=== PATIENT | female | born 2005 | race Caucasian/White ===

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

== ENCOUNTER 2023-05-10 15:29 | Outpatient (REF) | payer OTHER, SELFPAY ==
--- NOTE | ~2023-05-10 | US_ITS ---
EXAMINATION: US DIAGNOSTIC ULTRASOUND BREAST, RIGHT CLINICAL INFORMATION: 6 month Follow-up right breast fibroadenoma, 17 year female (first 6 month follow-up). COMPARISON: 11/03/2022 TECHNIQUE: Ultrasound of the right breast is performed with real-time stinson scale imaging and color Doppler. FINDINGS: There is redemonstration of a hypoechoic circumscribed mildly lobulated mass in the 8:00 axis of the right breast, 4 cm from the nipple, measuring a stable 2.1 x 1.2 x 1.8 cm. This is most consistent with a fibroadenoma which is stable. No additional abnormalities. Results were provided to the patient at time of visit by the technologist. US/US breast RT limited mamm only IMPRESSION: No significant interval change in right breast fibroadenoma measuring up to 2.1 cm. Recommend six-month interval follow-up targeted right breast ultrasound to ensure stability. ASSESSMENT: BI-RADS 3: Probably Benign RECOMMENDATION: Diagnostic ultrasonography in 6 months.
== END 2023-05-10 15:30 | disposition home or self-care (01) ==
LOC: HO.MAMMO 15:29
PROVIDERS: Visit Provider Advanced Practice Midwife
DX: R92.2 Inconclusive mammogram (principal)
CPT/HCPCS: 76642

== ENCOUNTER → 2023-05-10 15:30 | Outpatient (BNV) | payer OTHER, SELFPAY | PROVIDERS: Visit Provider Radiology Diagnostic Radiology | DX: N60.21 Fibroadenosis of right breast (principal) | CPT/HCPCS: 76642 ==

== ENCOUNTER 2024-11-25 12:43 | Emergency (ER) | payer OTHER, SELFPAY ==
[2024-11-25 12:45] VITALS: BP 128/75; PULSE 70; RESP 16; TEMP 36.6; O2SAT 100; BMI 17.7
--- NOTE | 2024-11-25 12:57 | ED_ITS ---
HPI - Female Genitourinary General Chief complaint: Urogenital-Female Stated complaint: stomach pain Time Seen by Provider: 11/25/24 13:39 Source: patient and family (mother) Mode of arrival: ambulatory Limitations: no limitations History of Present Illness ED Provider: [facility] Narrative: Patient is presenting with concern for UTI, she had urine tested with a dip kit at a pharmacy tested positive she also also reported episodes of nausea vomiting and diarrhea, states she is on her. She is not . No vaginal bleeding or discharge. No prior abdominal surgeries Related Data Previous Rx's ?Medication ?Instructions ?Recorded nitrofurantoin 100 mg PO BID #7 caps monohydrate/macrocrystals 100 mg capsule (Macrobid) Allergies Allergy/AdvReac Type Severity Reaction Status Date / Time acetaminophen (From TYLENOL) Allergy Intermediate RASH Verified 11/25/24 12:48 amoxicillin (AMOXICILLIN) Allergy Intermediate HIVES Verified 11/25/24 12:48 Review of Systems 2 Constitutional: Constitutional: Reports as per [facility] Past Medical History Medical History (Updated 11/25/24 @ 14:45 by Trevin Lagunas DO) Breast mass, right Lump in female breast No known health problems Social History Social History Alcohol intake: never Patient Tobacco Use Status: Never used Tobacco Substance Use Type: Marijuana Advance Directives: No Advance Directives Information Provided: Yes Do you have a plan to hurt others: No Plan Physical Exam 2 Vital Signs: Vital Signs: Last Vital Signs Temp 98.5 F 11/25/24 15:03 Pulse 71 11/25/24 15:03 Resp 16 11/25/24 15:03 BP 116/63 11/25/24 15:03 Pulse Ox 100 11/25/24 15:03 O2 Del Method Room Air 11/25/24 15:03 BMI result Body Mass Index 17.7 Const: Other: * Gen: ?Overall well-appearing patient * HEENT: PERRLA, EOMI, MMM, * Neck: Supple, no LAD * CV: RRR, no obvious murmurs appreciated * Resp: ?No wheezing rales rhonchi no stridor moving air well * Abd: ?Bowel sounds are present, no tenderness no rebound no rigidity * MSK: FROM, strength 5/5 all extremities * Skin: Warm, dry, intact, * Neuro: ?Alert and oriented x3, moving upper and lower extremities symmetrically, no obvious facial asymmetry noted Course Course Course Narrative: RME: 19-year-old female presents to ED for right-sided abdominal pain. Patient has took [id number] UTI kit which was positive. Patient denies any flank pain fever or chills. Patient states having increased urinary frequency. Labs ordered Medications Administered Discontinued Medications Generic Name Dose Route Start Last Admin Trade Name Freq PRN Reason Stop Dose Admin Nitrofurantoin Macrocrystals 100 mg 11/25/24 14:36 11/25/24 14:58 Nitrofurantoin Macrocrystal 50 Mg Capsule PO 11/25/24 14:37 100 mg ONCE ONE Administration Medical Decision Making Medical Decision Making [facility] Narrative: Patient's workup has been reassuring except for UTI, I did do a bedside ultrasound to evaluate for any gallbladder pathology at bedside, and there were no gallstones no pericholecystic fluid no gallbladder enlargement Her LFTs unremarkable No tenderness on exam in the lower quadrants to suspect ovarian pathology or appendicitis, did not feel that we require further imaging such as CT or ultrasound Differential Diagnosis Differential Diagnoses: The differential diagnosis associated with the presentation includes UTI, pyelonephritis, appendicitis, biliary pathology, pancreatitis, cholecystitis Lab Data 11/25/24 13:43 11/25/24 13:43 Labs: Lab Results 11/25/24 11/25/24 Range/Units 13:43 13:54 WBC 7.4 (4.8-10.8) X10*3/uL RBC 4.46 (4.20-5.50) X10*6/uL Hgb 13.9 (12.0-16.0) g/dl Hct 40.4 (37.0-47.0) % MCV 90.6 (80.0-98.0) fL MCH 31.2 (27.0-33.0) pg MCHC 34.4 (31.0-35.0) g/dl RDW 12.2 (11.0-16.0) % Plt Count 215 (160-400) X10*3/uL MPV 10.1 (9.4-12.3) fL Immature Gran % (Auto) 0.3 (0.0-0.4) % Neut % (Auto) 75.9 H (45-73) % Lymph % (Auto) 14.8 L (20-40) % Warrick % (Auto) 8.6 (2-11) % Eos % (Auto) 0.1 (0-4) % Baso % (Auto) 0.3 (0-2) % Lymph # (Auto) 1.1 L (1.2-4.9) X10*3/uL Warrick # (Auto) 0.6 (0.1-1.2) X10*3/uL Eos # (Auto) 0.0 (0.0-0.4) X10*3/uL Baso # (Auto) 0.0 (0.0-0.2) X10*3/uL Abs Immat Gran (auto) 0.02 (0.00-0.03) X10*3/uL Absolute Neuts (auto) 5.6 (2.0-8.3) x10*3/uL Absolute Nucleated RBC 0.000 (0.0-0.012) X10*3/uL Nucleated RBC % (auto) 0.0 (0.0-0.2) /100WBC Sodium 140 (135-145) mmol/L Potassium 4.4 (3.3-5.1) mmol/L Chloride 104 (96-108) mmol/L Carbon Dioxide 26 (22-29) mmol/L Anion Gap 14 (12-20) BUN 8 L (9-16) mg/dL Creatinine 0.59 (0.5-1.4) mg/dL Estim Creat Clear Calc 129.5 Estimated GFR > 60 Random Glucose 89 (60-115) mg/dL Calcium 9.6 (8.4-10.2) mg/dL Total Bilirubin 1.9 H (0.0-1.0) mg/dL Direct Bilirubin 0.3 (0.0-0.5) mg/dL AST 21 (5-31) U/L ALT 14 (0-31) U/L Alkaline Phosphatase 65 (39-117) U/L Total Protein 7.8 (6.5-8.0) g/dL Albumin 4.3 (3.5-5.0) g/dL Lipase 14 (8-78) U/L Beta HCG, Quant < 2 mIU/mL Urine Color Yellow Urine Appearance Cloudy Urine pH 6.5 (5.0-9.0) Ur Specific Newcomb 1.015 (1.005-1.025) Urine Protein 30 (1+) H (Neg-Trace) mg/dL Urine Glucose (UA) Negative (Negative) mg/dL Urine Ketones Negative (Negative) mg/dL Urine Blood Large (3+) H (Negative) Urine Nitrite Negative (Negative) Ur Leukocyte Esterase Large (3+) H (Negative) Urine RBC >20 H (0-2) /HPF Urine WBC >50 H (0-5) /HPF Ur Squamous Epith Cells 3-5 (0-2) /HPF Urine Bacteria 3+ (None Seen) Hyaline Casts 0-2 (0-2) /LPF Discharge Plan Discharge Clinical Impression: Urinary tract infection Patient Disposition: Home, Self-Care Instructions: Urinary Tract Infection in Women (DC) Additional Instructions: Workup came back positive for a urinary tract infection, 1st dose antibiotics in the ER, take a 2nd dose in the evening, finish the rest of the medications, any worsening issues concerns come back to the ER your workup today was otherwise reassuring Prescriptions: New nitrofurantoin monohyd/m-cryst [Macrobid] 100 mg capsule 100 mg PO BID Qty: 7 0RF Rx Instructions: must administer with a meal/food Stand Alone Forms: Work/School Release Interventions: ED Discharge Assessment Last Done: 11/25/24 15:03 Discharge Date/Time: 11/25/24 15:03 Print Language: Turkish
[2024-11-25 13:50] LABS: MANUAL DIFF FLAG NO
[2024-11-25 13:52] LABS: Basophils Percent Auto 0.3 % (0-2); Eosinophils Percent Auto 0.1 % (0-4); Hematocrit 40.4 % (37.0-47.0); Hemoglobin 13.9 g/dl (12.0-16.0); Imm Gran Abs Auto 0.02 X10*3/uL (0.00-0.03); Imm Gran Pct Auto 0.3 % (0.0-0.4); Lymphocytes Absolute Auto 1.1 X10*3/uL (1.2-4.9); Lymphocytes Percent Auto 14.8 % (20-40); Mean Corpuscular HGB Conc 34.4 g/dl (31.0-35.0); Mean Corpuscular Hemoglobin 31.2 pg (27.0-33.0); Mean Corpuscular Volume 90.6 fL (80.0-98.0); Mean Platelet Volume 10.1 fL (9.4-12.3); Monocytes Absolute Auto 0.6 X10*3/uL (0.1-1.2); Monocytes Percent Auto 8.6 % (2-11); Neutrophils Absolute Auto 5.6 x10*3/uL (2.0-8.3); Neutrophils Percent Auto 75.9 % (45-73); Platelet Count 215 X10*3/uL (160-400); Red Blood Count 4.46 X10*6/uL (4.20-5.50); Red Cell Distribution Width 12.2 % (11.0-16.0); White Blood Count 7.4 X10*3/uL (4.8-10.8)
[2024-11-25 14:04] LABS: Appearance Urine Cloudy; Color Urine Yellow; Glucose Urine UA Negative (Negative); Leukocyte Esterase Urine Large (3+) (Negative); Nitrite Urine Negative (Negative); PH 6.5 (5.0-9.0); Specific Gravity - Urine 1.015 (1.005-1.025); UMIC TRIGGER UACC YES; Urine Blood Large (3+) (Negative); Urine Ketones Negative (Negative); Urine Protein 30 (1+) mg/dL (Neg-Trace)
[2024-11-25 14:06] LABS: Bacteria Urine 3+ (None Seen); Hyaline Casts Urine 0-2 /LPF (0-2); RBC Urine >20 /HPF (0-2); UACC Culture Trigger YES; WBC Urine >50 /HPF (0-5)
--- NOTE | 2024-11-25 14:08 | PC.NURSE ---
Bedside ultrasound of abdomen/gallbladder by Dr. Lagunas due to right upper quadrant pain/tenderness, no significant findings. Labs drawn and sent for analysis. Results processing at this time. Care ongoing by this RN.
[2024-11-25 14:10] LABS: Anion Gap 14 (12-20)
[2024-11-25 14:13] LABS: Alanine Aminotransferase 14 U/L (0-31); Albumin Level 4.3 g/dL (3.5-5.0); Alkaline Phosphatase 65 U/L (39-117); Aspartate Amino Transferase 21 U/L (5-31); Bilirubin Direct 0.3 mg/dL (0.0-0.5); Bilirubin Total 1.9 mg/dL (0.0-1.0); Blood Urea Nitrogen 8 mg/dL (9-16); Calcium 9.6 mg/dL (8.4-10.2); Carbon Dioxide 26 mmol/L (22-29); Chloride 104 mmol/L (96-108); Creatinine Clr Calc Pharmacy 129.5; Estimated Glomerular Filt Rate > 60; Glucose Random 89 mg/dL (60-115); Lipase 14 U/L (8-78); Potassium 4.4 mmol/L (3.3-5.1); Sodium 140 mmol/L (135-145); Total Protein 7.8 g/dL (6.5-8.0)
[2024-11-25 14:14] LABS: HCG Quantitative < 2 mIU/mL
[2024-11-25 14:20] VITALS: BP 116/63; PULSE 71; RESP 16; TEMP 36.9; O2SAT 100
[2024-11-25] MEDS: nitrofurantoin macrocrystaL 50 MG CAPSULE 100 MG PO (14:58)
[2024-11-25 15:03] VITALS: BP 116/63; PULSE 71; RESP 16; TEMP 36.9; O2SAT 100
== END 2024-11-25 15:03 | disposition home or self-care (01) ==
PROVIDERS: Physician Assistant; Emergency Provider Emergency Medicine
DX: N39.0 Urinary tract infection, site not specified (principal); R11.2 Nausea with vomiting, unspecified; R10.2 Pelvic and perineal pain; Z79.899 Other long term (current) drug therapy
CPT/HCPCS: 36415; 80053; 81001; 82248; 83690; 84702; 85025; 87086; 87088; 87186; 99283